=== PATIENT | male | born 1960 | race Caucasian/White ===

== ENCOUNTER 2017-04-06 21:00 | Inpatient (IN) | payer OTHER ==
[~2017-04-06] VITALS: Ht 185.4 cm; Wt 84.6 kg
[2017-04-06 21:30] VITALS: BP 129/84; RESP 18
[2017-04-06 22:30] VITALS: PULSE 99
[2017-04-06] MEDS ORDERED: ACETAMINOPHEN 325 MG TAB PO PRN (23:00)
[2017-04-06] MEDS ORDERED: hydrALAzine 20 MG INJ IV PRN (23:00)
[2017-04-06 23:33] VITALS: Ht 185.4 cm; Wt 84.6 kg
[2017-04-06 23:51] VITALS: BP 128/83; RESP 18
[2017-04-07] VITALS (12 sets, daily range): BP systolic 134–160; BP diastolic 86–99; PULSE 66–90; RESP 18
[2017-04-07] MEDS: DEXTROSE 5%-0.9% NACL 1,000 ML IV SCH ×2 (00:17→16:47)
[2017-04-07] MEDS: CEFTRIAXONE 1 GM/50 ML (PMX) 50 ML IVPB SCH ×2 (00:17→22:15)
[2017-04-07] MEDS: LORAZEPAM 2 MG INJ IV PRN ×3 (00:17→20:33)
[2017-04-07] MEDS ORDERED: PANTOPRAZOLE 40 MG INJ IV SCH (06:00)
[2017-04-07] MEDS ORDERED: LISI10TA2 PO (07:26)
[2017-04-07] MEDS ORDERED: AMLO-147 PO (07:26)
[2017-04-07] MEDS ORDERED: BUPR-75 PO (07:26)
[2017-04-07] MEDS: MULTIVITAMINS 10 ML, THIAMINE 100 MG in SOD CHLORIDE 0.9% 1,000 ML IVPB SCH (08:31)
[2017-04-07 08:49] LABS: ABNORMAL IP MESSAGE 1; BASOPHILS % 0.3 % (0.0-2.0); EOSINOPHILS # 0.1 10^3/ul (0.0-0.5); EOSINOPHILS % 1.4 % (0.0-7.0); HEMATOCRIT 39.9 % (42.0-52.0); HEMOGLOBIN 14.1 g/dl (14.0-18.0); LYMPHOCYTES # 1.7 10^3/ul (0.8-2.9); LYMPHOCYTES % 19.8 % (15.0-51.0); MEAN CORPUSCULAR HEMOGLOBIN 29.4 pg (29.0-33.0); MEAN CORPUSCULAR HGB CONC 35.3 g/dl (32.0-37.0); MEAN CORPUSCULAR VOLUME 83.1 fl (82.0-101.0); MEAN PLATELET VOLUME 10.4 fl (7.4-10.4); MONOCYTE # 0.4 10^3/ul (0.3-0.9); MONOCYTES % 5.1 % (0.0-11.0); NEUTROPHIL # 6.3 10^3/ul (1.6-7.5); NEUTROPHILS % 73.2 % (39.0-77.0); PLATELET COUNT 99 10^3/UL (140-415); POSITIVE DIFF @See below; RED CELL DISTRIBUTION WIDTH 12.5 % (11.5-14.5); WHITE BLOOD COUNT 8.6 10^3/ul (4.8-10.8)
[2017-04-07 09:23] LABS: ALBUMIN 3.8 g/dl (3.3-4.9); ALBUMIN/GLOBULIN RATIO 1.4; BILIRUBIN,INDIRECT 0.8 mg/dl (0-1.1); BILIRUBIN,TOTAL 0.8 mg/dl (0.2-1.3); CALCIUM 8.2 mg/dl (8.4-10.2); CREATININE 0.6 mg/dl (0.61-1.24); POTASSIUM 3.5 mmol/L (3.5-5.1); TOTAL PROTEIN 6.5 g/dl (6.1-8.1)
[2017-04-07] MEDS: CHLORDIAZEPOXIDE 25 MG CAP PO SCH ×2 (12:22→20:32)
--- NOTE | 2017-04-07 15:01 | PSY ---
Date/Time of Note Date/Time of Note DATE: 04/07/17 TIME: 14:57 Psychiatric Subjective Eval Consent Pt consented to telemedicine: Yes Subjective Evaluation Patient location: inpatient Chief Complaint: s/p OD History of present illness Pt is 56 yo male with hx alcohol use disorder admitted s/p OD on his antihypretensive meds while intoxicated on alcohol; pt says "he always does it" then he relapses on alcohol; he says he was depressed and called 911 after the OD himself. He still is deprssed but now denies SI. He says he is hoepless and helpless at times but he has a supportive . He denies AH or Vh. He is on Wellbutrin. Past psychiatric history last inpt was 08/15 due to SA by OD Hospitalization: yes Family History denies Medical history reviewed Allergies: Coded Allergies: grass pollen (Verified Allergy, Mild, 04/06/17) sneezing Substance Abuse Substance abuse history: Yes Prior substance abuse treatmen: Yes Social History Marital status: Level of education: some college DPA/Conservatorship: No Occupation/Long Term: unemployed Psychiatric Objective Eval Physical Examination: Sleep: Insomnia Appetite: Adequate Energy: Decreased Interest: Decreased Mental Status Examination: Appearance: Disheveled Eye Contact: Good Psychomotor Activity: Normal Behavior: Cooperative Speech: Clear AFFECT: Depressed Mood: Depressed Though Process: Linear Thought Content: Normal Suicidal: Yes Homicidal: No On 72 hour hold: No Orientation: x4 Cognition: Alert Insight: Impared Judgement: Impared Laboratory Results Laboratory Tests Test 04/07/17 08:24 White Blood Count 8.610^3/ul Red Blood Count 4.8010^6/ul Hemoglobin 14.1g/dl Hematocrit 39.9% Mean Corpuscular Volume 83.1fl Mean Corpuscular Hemoglobin 29.4pg Mean Corpuscular Hemoglobin Concent 35.3g/dl Red Cell Distribution Width 12.5% Platelet Count 9910^3/UL Mean Platelet Volume 10.4fl Neutrophils % 73.2% Lymphocytes % 19.8% Monocytes % 5.1% Eosinophils % 1.4% Basophils % 0.3% Nucleated Red Blood Cells % 0.0/100WBC Neutrophils # 6.310^3/ul Lymphocytes # 1.710^3/ul Monocytes # 0.410^3/ul Eosinophils # 0.110^3/ul Basophils # 0.010^3/ul Nucleated Red Blood Cells # 0.010^3/ul Sodium Level 143mmol/L Potassium Level 3.5mmol/L Chloride Level 106mmol/L Carbon Dioxide Level 26mmol/L Anion Gap 15 Blood Urea Nitrogen 11mg/dl Creatinine 0.60mg/dl Glucose Level 101mg/dl Calcium Level 8.2mg/dl Magnesium Level 1.3mg/dl Total Bilirubin 0.8mg/dl Direct Bilirubin 0.00mg/dl Indirect Bilirubin 0.8mg/dl Aspartate Amino Transf (AST/SGOT) 45IU/L Alanine Aminotransferase (ALT/SGPT) 45IU/L Alkaline Phosphatase 73IU/L Total Protein 6.5g/dl Albumin 3.8g/dl Globulin 2.70g/dl Albumin/Globulin Ratio 1.40 Amylase Level 176U/L Lipase 791U/L Assessment and Plan Assessment/Diagnosis [place] I: ALCOHOL USE DISORDER. MAJOR DEPRESSIVE DISORDER SEVERE RECURRENT WITH PSYCHOSIS [place] II: DEFERED [place] III: MS [place] IV: MODERATE [place] V: GAF 25 Recommendation/Plan Medication Management COSNDIER HOLDING WELLBUTRIN. CONSDIER STARTING ON REMERON 15 MG POQHS; MONITOR FOR OBJECTIVE SIGNS OF ALCOHOL WITHDRAWALS. CONSIDER CIWA PROTOCOL. Psychotherapy DEFER TO INPT Follow-up/Disposition 5150 FOR DTS; TRANSFER TO INPT PSYCH. 5150 Recommendation: ELIZABET Reyna MD Apr 07, 2017 15:01
--- NOTE | 2017-04-07 17:52 | QN ---
Documentation Comment [id number] ALEXYS BARBOSA MD Apr 07, 2017 17:52
[2017-04-07] MEDS ORDERED: MAGNESIUM SULFATE 2 GM/50 ML 50 ML IVPB ONE (18:00)
[2017-04-07] MEDS: FAMOTIDINE 20 MG INJ IV SCH (20:32)
--- NOTE | 2017-04-07 21:01 | HP ---
DATE OF ADMISSION: 04/06/2017 HISTORY OF PRESENT ILLNESS: The patient is a 56-year-old male with history of alcohol abuse, psychiatric disorder. Patient was seen at [facility] ER after he started to drink alcohol and he also took his Wellbutrin. Patient was seen by Dr. Martin and was transferred to [facility] for further management. The patient was stable and cleared. The patient is also being seen by tele psych. Patient's vital signs and laboratory data was stable at the time of discharge, transferred from [facility]. PAST MEDICAL HISTORY: Positive for hypertension, depression, psychiatric disorder. ALLERGY HISTORY: GRASS, POLLEN. SOCIAL HISTORY: Positive for drinking. Denies drugs. MEDICATION HISTORY: Listed at home as: 1. Amlodipine. 2. Bupropion. 3. Lisinopril. REVIEW OF SYSTEMS: HEENT: Unremarkable. RESPIRATORY: Unremarkable. CARDIOVASCULAR: No chest pain, palpitation. ABDOMEN: No nausea, vomiting, or dyspepsia. The patient is hungry. EXTREMITIES: Unremarkable. CENTRAL NERVOUS SYSTEM: Unremarkable except anxiety. PHYSICAL EXAMINATION: GENERAL: The patient is awake, alert. VITAL SIGNS: Pulse 70, blood pressure 140/98. HEAD: Atraumatic, normocephalic. Pupils equal, reactive to light. NECK: Supple. No JVD. LUNGS: Clear. CARDIOVASCULAR: S1, S2 are normal. ABDOMEN: Soft, nontender. Bowel sounds positive. No palpable mass or hepatosplenomegaly. No guarding, rebound tenderness. EXTREMITIES: No cyanosis, clubbing, or edema. CENTRAL NERVOUS SYSTEM: The patient is awake, alert. No focal deficit. LABORATORY DATA: Sodium 140, potassium 3.5, BUN 11, creatinine 1.60, magnesium 1.3, hematocrit 39.9, amylase 176. Lipase 791. IMPRESSION: 1. Acute pancreatitis. 2. Alcohol abuse. 3. Depression. 4. wellbutrin overdose. 5. Hypomagnesemia. PLAN: Give this patient clear liquid diet, IV fluids and antianxiety medication. Watch PPI and magnesium replacement. Orders were done. Dictated By: ALEXYS BARBOSA MD BS/NTS Conf#: [id number] DID#: [id number] MTDD
[2017-04-08] VITALS (14 sets, daily range): BP systolic 129–164; BP diastolic 75–104; PULSE 63–78; RESP 18–20
[2017-04-08] MEDS: DEXTROSE 5%-0.9% NACL 1,000 ML IV SCH ×2 (06:24→15:00)
[2017-04-08 08:12] LABS: MAGNESIUM 1.8 mg/dl (1.7-2.5)
[2017-04-08] MEDS: FAMOTIDINE 20 MG INJ IV SCH ×2 (08:13→21:00)
[2017-04-08] MEDS: CHLORDIAZEPOXIDE 25 MG CAP PO SCH ×3 (08:13→21:00)
[2017-04-08] MEDS: MULTIVITAMINS 10 ML, THIAMINE 100 MG in SOD CHLORIDE 0.9% 1,000 ML IVPB SCH (08:13)
[2017-04-08 08:21] LABS: ALBUMIN 4.1 g/dl (3.3-4.9); ALBUMIN/GLOBULIN RATIO 1.41; BILIRUBIN,INDIRECT 0.9 mg/dl (0-1.1); BILIRUBIN,TOTAL 0.9 mg/dl (0.2-1.3); CALCIUM 8.5 mg/dl (8.4-10.2); CREATININE 0.64 mg/dl (0.61-1.24); POTASSIUM 3.4 mmol/L (3.5-5.1)
[2017-04-08] MEDS ORDERED: POTASSIUM CHLORIDE (SR) 10 MEQ TAB PO ONE (19:00)
--- NOTE | 2017-04-08 19:02 | PN ---
Date/Time of Note Date/Time of Note DATE: 04/08/17 TIME: 19:01 Assessment/Plan VTE Prophylaxis VTE Prophylaxis Intervention: other Lines/Catheters IV Catheter Type (from Nrs): Peripheral IV Assessment/Plan Chief Complaint/Hosp Course IMPRESSION: 1. Acute pancreatitis.better 2. Alcohol abuse. 3. Depression. 4. wellbutrin overdose. 5. Hypomagnesemia. plan po diet kcl Problems: Subjective 24 Hr Interval Summary Respiratory: no complaints Cardiovascular: no complaints Gastrointestinal: no complaints Exam/Review of Systems Vital Signs Vitals Vital Signs Date Time Temp Pulse Resp B/P Pulse Ox O2 Delivery O2 Flow Rate FiO2 04/08/17 16:37 74 04/08/17 16:00 98.3 18 136/87 96 Intake and Output 04/07/17 04/07/17 04/08/17 15:00 23:00 07:00 Intake Total 2261 ml 750 ml Balance 2261 ml 750 ml Exam Respiratory: clear to auscultation Cardiovascular: regular rate and rhythm Gastrointestinal: soft Musculoskeletal: nl extremities to inspection Extremities: normal pulses Results Result Diagram: 04/07/17 0824 04/08/17 0719 Results 24 hrs Laboratory Tests Test 04/08/17 07:19 Sodium Level 139 Potassium Level 3.4 L Chloride Level 104 Carbon Dioxide Level 24 Anion Gap 14 Blood Urea Nitrogen 10 Creatinine 0.64 Glucose Level 115 Calcium Level 8.5 Magnesium Level 1.8 Total Bilirubin 0.9 Direct Bilirubin 0.00 Indirect Bilirubin 0.9 Aspartate Amino Transf (AST/SGOT) 43 Alanine Aminotransferase (ALT/SGPT) 47 Alkaline Phosphatase 89 Total Protein 7.0 Albumin 4.1 Globulin 2.90 Albumin/Globulin Ratio 1.41 Lipase 220 Medications Medications Current Medications Dextrose/Sodium Chloride 1,000 ml @ 50 mls/hr Q20H IV Last administered on 06:24; Admin Dose 50 MLS/HR; Start 04/06/17 at 23:00 Multivitamins/ Thiamine HCl/ Sodium Chloride (Mvi Adult/ Vitamin B1/NS) 1,011 ml @ 125 mls/hr DAILY@09 IVPB Last administered on 04/08/17 08:13; Admin Dose 125 MLS/HR; Start 04/07/17 at 09:00 Lorazepam (Ativan) 1 mg Q4 PRN IV AGITATION/ANXIETY Last administered on 20:33; Admin Dose 1 MG; Start 04/06/17 at 23:00 Morphine Sulfate 2 mg 2 mg Q4H PRN IV PAIN; Start 04/06/17 at 23:00 Ceftriaxone Sodium (Rocephin) 50 ml @ 100 mls/hr Q24H IVPB Last administered on 04/07/17 22:15; Admin Dose 100 MLS/HR; Start 04/06/17 at 23:00 Acetaminophen (Tylenol Tab) 650 mg Q4H PRN PO PAIN AND OR ELEVATED TEMP; Start 04/06/17 at 23:00 Hydralazine HCl (Apresoline) 10 mg Q6H PRN IV systolic BP >170; Start 04/06/17 at 23:00 Chlordiazepoxide (Librium) 25 mg TID PO Last administered on 04/08/17 12:29; Admin Dose 25 MG; Start 04/07/17 at 13:00 Famotidine (Pepcid Iv) 20 mg BID IV Last administered on 04/08/17 08:13; Admin Dose 20 MG; Start 04/07/17 at 21:00; Stop 04/08/17 at 23:59 Pantoprazole (Protonix Tab) 40 mg DAILY@06 PO ; Start 04/09/17 at 06:00 ALEXYS BARBOSA MD Apr 08, 2017 19:02
[2017-04-08] MEDS: LORAZEPAM 2 MG INJ IV PRN (22:44)
[2017-04-09] VITALS (10 sets, daily range): BP systolic 124–151; BP diastolic 79–104; PULSE 58–68; RESP 16–20
[2017-04-09] MEDS: PANTOPRAZOLE (EC) 40 MG TAB PO SCH (05:46)
[2017-04-09 08:38] LABS: ABNORMAL IP MESSAGE 1; BASOPHILS % 0.5 % (0.0-2.0); EOSINOPHILS # 0.2 10^3/ul (0.0-0.5); EOSINOPHILS % 2.2 % (0.0-7.0); HEMATOCRIT 40.8 % (42.0-52.0); HEMOGLOBIN 13.6 g/dl (14.0-18.0); LYMPHOCYTES # 1.5 10^3/ul (0.8-2.9); LYMPHOCYTES % 20.1 % (15.0-51.0); MEAN CORPUSCULAR HEMOGLOBIN 28.1 pg (29.0-33.0); MEAN CORPUSCULAR HGB CONC 33.3 g/dl (32.0-37.0); MEAN CORPUSCULAR VOLUME 84.3 fl (82.0-101.0); MEAN PLATELET VOLUME 11.4 fl (7.4-10.4); MONOCYTE # 0.5 10^3/ul (0.3-0.9); MONOCYTES % 6.3 % (0.0-11.0); NEUTROPHIL # 5.2 10^3/ul (1.6-7.5); NEUTROPHILS % 70.5 % (39.0-77.0); PLATELET COUNT 80 10^3/UL (140-415); POSITIVE DIFF @See below; RED BLOOD COUNT 4.84 10^6/ul (4.70-6.10); RED CELL DISTRIBUTION WIDTH 12.7 % (11.5-14.5); WHITE BLOOD COUNT 7.4 10^3/ul (4.8-10.8)
[2017-04-09 08:46] LABS: ALBUMIN 3.7 g/dl (3.3-4.9); ALBUMIN/GLOBULIN RATIO 1.37; BILIRUBIN,INDIRECT 0.5 mg/dl (0-1.1); BILIRUBIN,TOTAL 0.5 mg/dl (0.2-1.3); CALCIUM 8.5 mg/dl (8.4-10.2); CREATININE 0.75 mg/dl (0.61-1.24); POTASSIUM 3.4 mmol/L (3.5-5.1); TOTAL PROTEIN 6.4 g/dl (6.1-8.1)
[2017-04-09] MEDS: MULTIVITAMINS 10 ML, THIAMINE 100 MG in SOD CHLORIDE 0.9% 1,000 ML IVPB SCH (08:59)
[2017-04-09] MEDS: CHLORDIAZEPOXIDE 25 MG CAP PO SCH ×3 (08:59→21:14)
[2017-04-09] MEDS: DEXTROSE 5%-0.9% NACL 1,000 ML IV SCH ×2 (11:00→18:41)
--- NOTE | 2017-04-09 19:04 | PN ---
Date/Time of Note Date/Time of Note DATE: 04/09/17 TIME: 19:02 Assessment/Plan VTE Prophylaxis VTE Prophylaxis Intervention: other Lines/Catheters IV Catheter Type (from Nrs): Peripheral IV Assessment/Plan Chief Complaint/Hosp Course IMPRESSION: 1. Acute pancreatitis.better 2. Alcohol abuse. 3. Depression. 4. wellbutrin overdose. 5. Hypomagnesemia. plan po diet kcl PSYCHIC F/U Problems: Subjective 24 Hr Interval Summary Subjective hx not possible: other (NO DEPRESSION AND NO SUIDAL IDEATION) Exam/Review of Systems Vital Signs Vitals Vital Signs Date Time Temp Pulse Resp B/P Pulse Ox O2 Delivery O2 Flow Rate FiO2 04/09/17 16:05 61 04/09/17 15:39 98.3 16 141/93 97 Intake and Output 04/08/17 04/08/17 04/09/17 15:00 23:00 07:00 Intake Total 1311 ml 1000 ml Balance 1311 ml 1000 ml Exam Neck: supple Cardiovascular: regular rate and rhythm Gastrointestinal: bowel sounds Results Result Diagram: 04/09/17 0730 04/09/17 0730 Results 24 hrs Laboratory Tests Test 04/09/17 07:30 White Blood Count 7.4 Red Blood Count 4.84 Hemoglobin 13.6 L Hematocrit 40.8 L Mean Corpuscular Volume 84.3 Mean Corpuscular Hemoglobin 28.1 L Mean Corpuscular Hemoglobin Concent 33.3 Red Cell Distribution Width 12.7 Platelet Count 80 L Mean Platelet Volume 11.4 H Neutrophils % 70.5 Lymphocytes % 20.1 Monocytes % 6.3 Eosinophils % 2.2 Basophils % 0.5 Nucleated Red Blood Cells % 0.0 Neutrophils # 5.2 Lymphocytes # 1.5 Monocytes # 0.5 Eosinophils # 0.2 Basophils # 0.0 Nucleated Red Blood Cells # 0.0 Sodium Level 142 Potassium Level 3.4 L Chloride Level 106 Carbon Dioxide Level 25 Anion Gap 14 Blood Urea Nitrogen 16 Creatinine 0.75 Glucose Level 113 Calcium Level 8.5 Total Bilirubin 0.5 Direct Bilirubin 0.00 Indirect Bilirubin 0.5 Aspartate Amino Transf (AST/SGOT) 25 Alanine Aminotransferase (ALT/SGPT) 44 Alkaline Phosphatase 76 Total Protein 6.4 Albumin 3.7 Globulin 2.70 Albumin/Globulin Ratio 1.37 Medications Medications Current Medications Dextrose/Sodium Chloride 1,000 ml @ 50 mls/hr Q20H IV Last administered on 18:41; Admin Dose 50 MLS/HR; Start 04/06/17 at 23:00 Multivitamins/ Thiamine HCl/ Sodium Chloride (Mvi Adult/ Vitamin B1/NS) 1,011 ml @ 125 mls/hr DAILY@09 IVPB Last administered on 04/09/17 08:59; Admin Dose 125 MLS/HR; Start 04/07/17 at 09:00 Lorazepam (Ativan) 1 mg Q4 PRN IV AGITATION/ANXIETY Last administered on 22:44; Admin Dose 1 MG; Start 04/06/17 at 23:00 Morphine Sulfate (morphine) 2 mg Q4H PRN IV PAIN; Start 04/06/17 at 23:00 Acetaminophen (Tylenol Tab) 650 mg Q4H PRN PO PAIN AND OR ELEVATED TEMP; Start 04/06/17 at 23:00 Hydralazine HCl (Apresoline) 10 mg Q6H PRN IV systolic BP >170; Start 04/06/17 at 23:00 Chlordiazepoxide (Librium) 25 mg TID PO Last administered on 04/09/17 12:36; Admin Dose 25 MG; Start 04/07/17 at 13:00 Pantoprazole (Protonix Tab) 40 mg DAILY@06 PO Last administered on 04/09/17 05 :46; Admin Dose 40 MG; Start 04/09/17 at 06:00 ALEXYS BARBOSA MD Apr 09, 2017 19:04
[2017-04-09] MEDS ORDERED: POTASSIUM CHLORIDE 250 ML IVPB ONE (19:30)
[2017-04-09] MEDS: LORAZEPAM 2 MG INJ IV PRN (22:02)
[2017-04-10] VITALS (7 sets, daily range): BP systolic 125–149; BP diastolic 75–98; RESP 16–20
[2017-04-10] MEDS: PANTOPRAZOLE (EC) 40 MG TAB PO SCH (06:37)
[2017-04-10 07:50] LABS: ALBUMIN 3.6 g/dl (3.3-4.9); ALBUMIN/GLOBULIN RATIO 1.33; BILIRUBIN,INDIRECT 0.3 mg/dl (0-1.1); BILIRUBIN,TOTAL 0.3 mg/dl (0.2-1.3); CALCIUM 8.7 mg/dl (8.4-10.2); CREATININE 0.79 mg/dl (0.61-1.24); POTASSIUM 3.9 mmol/L (3.5-5.1); TOTAL PROTEIN 6.3 g/dl (6.1-8.1)
[2017-04-10] MEDS: CHLORDIAZEPOXIDE 25 MG CAP PO SCH ×3 (09:20→20:36)
[2017-04-10] MEDS: MULTIVITAMINS 10 ML, THIAMINE 100 MG in SOD CHLORIDE 0.9% 1,000 ML IVPB SCH (09:20)
--- NOTE | 2017-04-10 11:26 | PN ---
Date/Time of Note Date/Time of Note DATE: 04/10/17 TIME: 11:25 Assessment/Plan VTE Prophylaxis VTE Prophylaxis Intervention: ambulation Lines/Catheters IV Catheter Type (from Nrs): Peripheral IV Assessment/Plan Chief Complaint/Hosp Course 1. Acute pancreatitis, better 2. Alcohol abuse. 3. Depression. 4. Wellbutrin overdose. 5. Hypomagnesemia. Problems: Assessment/Plan 1. pt is clear medically 2. transfer to psychiatric facility Subjective 24 Hr Interval Summary Constitutional: improved, no complaints Exam/Review of Systems Vital Signs Vitals Vital Signs Date Time Temp Pulse Resp B/P Pulse Ox O2 Delivery O2 Flow Rate FiO2 04/10/17 07:19 98.0 58 20 141/98 98 Intake and Output 04/09/17 04/09/17 04/10/17 15:00 23:00 07:00 Intake Total 2000 ml Balance 2000 ml Exam Constitutional: alert, oriented Respiratory: clear to auscultation Cardiovascular: regular rate and rhythm Gastrointestinal: soft Results Result Diagram: 04/09/17 0730 04/10/17 0700 Results 24 hrs Laboratory Tests Test 04/10/17 07:00 Sodium Level 141 Potassium Level 3.9 Chloride Level 106 Carbon Dioxide Level 25 Anion Gap 14 Blood Urea Nitrogen 17 Creatinine 0.79 Glucose Level 107 Calcium Level 8.7 Total Bilirubin 0.3 Direct Bilirubin 0.00 Indirect Bilirubin 0.3 Aspartate Amino Transf (AST/SGOT) 21 Alanine Aminotransferase (ALT/SGPT) 38 Alkaline Phosphatase 74 Total Protein 6.3 Albumin 3.6 Globulin 2.70 Albumin/Globulin Ratio 1.33 Medications Medications Current Medications Dextrose/Sodium Chloride 1,000 ml @ 50 mls/hr Q20H IV Last administered on 18:41; Admin Dose 50 MLS/HR; Start 04/06/17 at 23:00 Multivitamins/ Thiamine HCl/ Sodium Chloride (Mvi Adult/ Vitamin B1/NS) 1,011 ml @ 125 mls/hr DAILY@09 IVPB Last administered on 04/10/17 09:20; Admin Dose 125 MLS/HR; Start 04/07/17 at 09:00 Lorazepam (Ativan) 1 mg Q4 PRN IV AGITATION/ANXIETY Last administered on 22:02; Admin Dose 1 MG; Start 04/06/17 at 23:00 Morphine Sulfate (morphine) 2 mg Q4H PRN IV PAIN; Start 04/06/17 at 23:00 Acetaminophen (Tylenol Tab) 650 mg Q4H PRN PO PAIN AND OR ELEVATED TEMP; Start 04/06/17 at 23:00 Hydralazine HCl (Apresoline) 10 mg Q6H PRN IV systolic BP >170; Start 04/06/17 at 23:00 Chlordiazepoxide (Librium) 25 mg TID PO Last administered on 04/10/17 09:20; Admin Dose 25 MG; Start 04/07/17 at 13:00 Pantoprazole (Protonix Tab) 40 mg DAILY@06 PO Last administered on 04/10/17 06:37; Admin Dose 40 MG; Start 04/09/17 at 06:00 LYNDSEY MATTA Apr 10, 2017 11:26
[2017-04-10 12:48] LABS: AMYLASE 102 U/L (11-123)
[2017-04-10] MEDS: DEXTROSE 5%-0.9% NACL 1,000 ML IV SCH (22:50)
[2017-04-10] MEDS: LORAZEPAM 2 MG INJ IV PRN (22:50)
[2017-04-11 02:40] VITALS: BP 140/94; RESP 20
[2017-04-11 06:12] LABS: CHOL/HDL RATIO 2.4 RATIO
[2017-04-11] MEDS: PANTOPRAZOLE (EC) 40 MG TAB PO SCH (06:15)
[2017-04-11 08:00] VITALS: BP 138/93; RESP 16
[2017-04-11] MEDS: MULTIVITAMINS 10 ML, THIAMINE 100 MG in SOD CHLORIDE 0.9% 1,000 ML IVPB SCH (09:24)
[2017-04-11] MEDS: CHLORDIAZEPOXIDE 25 MG CAP PO SCH ×3 (09:24→20:05)
--- NOTE | 2017-04-11 11:10 | PN ---
Date/Time of Note Date/Time of Note DATE: 04/11/17 TIME: 11:09 Assessment/Plan VTE Prophylaxis VTE Prophylaxis Intervention: ambulation Lines/Catheters IV Catheter Type (from Nrsg): Peripheral IV Assessment/Plan Chief Complaint/Hosp Course 1. Acute pancreatitis, better 2. Alcohol abuse. 3. Depression. 4. Wellbutrin overdose. 5. Hypomagnesemia, resolved. Problems: Assessment/Plan 1. pending transfer to psych facility 2. Medically clear Subjective 24 Hr Interval Summary Constitutional: improved, no complaints Exam/Review of Systems Vital Signs Vitals Vital Signs Date Time Temp Pulse Resp B/P Pulse Ox O2 Delivery O2 Flow Rate FiO2 04/11/17 08:00 98.3 66 16 138/93 98 Intake and Output 04/10/17 04/10/17 04/11/17 15:00 23:00 07:00 Intake Total 1140 ml 2651 ml 540 ml Output Total 900 ml 300 ml Balance 240 ml 2351 ml 540 ml Exam Constitutional: alert, oriented Respiratory: clear to auscultation Cardiovascular: regular rate and rhythm Results Result Diagram: 04/09/17 0730 04/10/17 0700 Results 24 hrs Laboratory Tests Test 04/11/17 04:54 Triglycerides Level 79 Cholesterol Level 132 LDL Cholesterol, Calculated 61 HDL Cholesterol 55 Cholesterol/HDL Ratio 2.4 Amylase Level 131 H Medications Medications Current Medications Dextrose/Sodium Chloride 1,000 ml @ 50 mls/hr Q20H IV Last administered on 22:50; Admin Dose 50 MLS/HR; Start 04/06/17 at 23:00 Multivitamins/ Thiamine HCl/ Sodium Chloride (Mvi Adult/ Vitamin B1/NS) 1,011 ml @ 125 mls/hr DAILY@09 IVPB Last administered on 04/11/17 09:24; Admin Dose 125 MLS/HR; Start 04/07/17 at 09:00 Lorazepam (Ativan) 1 mg Q4 PRN IV AGITATION/ANXIETY Last administered on 22:50; Admin Dose 1 MG; Start 04/06/17 at 23:00 Morphine Sulfate (morphine) 2 mg Q4H PRN IV PAIN; Start 04/06/17 at 23:00 Acetaminophen (Tylenol Tab) 650 mg Q4H PRN PO PAIN AND OR ELEVATED TEMP; Start 04/06/17 at 23:00 Hydralazine HCl (Apresoline) 10 mg Q6H PRN IV systolic BP >170; Start 04/06/17 at 23:00 Chlordiazepoxide (Librium) 25 mg TID PO Last administered on 04/11/17 09:24; Admin Dose 25 MG; Start 04/07/17 at 13:00 Pantoprazole (Protonix Tab) 40 mg DAILY@06 PO Last administered on 04/11/17 06:15; Admin Dose 40 MG; Start 04/09/17 at 06:00 LYNDSEY MATTA Apr 11, 2017 11:10
[2017-04-11 14:00] VITALS: BP 134/91; RESP 17
[2017-04-11] MEDS: morphine 2 MG INJ IV PRN (17:39)
[2017-04-11 19:16] VITALS: BP 130/86; RESP 19
[2017-04-11] MEDS: DEXTROSE 5%-0.9% NACL 1,000 ML IV SCH (19:40)
[2017-04-11] MEDS: LORAZEPAM 2 MG INJ IV PRN (22:09)
[2017-04-12 02:22] VITALS: BP 139/86; RESP 18
[2017-04-12] MEDS: PANTOPRAZOLE (EC) 40 MG TAB PO SCH (05:22)
[2017-04-12 07:13] VITALS: BP 151/95; RESP 18
[2017-04-12 07:33] LABS: CHOL/HDL RATIO 2.4 RATIO
--- NOTE | 2017-04-12 07:57 | PN ---
Date/Time of Note Date/Time of Note DATE: 04/12/17 TIME: 07:56 Assessment/Plan VTE Prophylaxis VTE Prophylaxis Intervention: ambulation Lines/Catheters IV Catheter Type (from Nrs): Peripheral IV Assessment/Plan Chief Complaint/Hosp Course 1. Acute pancreatitis, better. Lipase 700 2. Alcohol abuse. 3. Depression. 4. Wellbutrin overdose. 5. Hypomagnesemia, resolved. Problems: Assessment/Plan 1. Placement issue. Pt can be transferred to [facility] hospital when lipase will be decreased to 200 2. amylase and lipase level tomorrow Subjective 24 Hr Interval Summary Constitutional: improved, no complaints Exam/Review of Systems Vital Signs Vitals Vital Signs Date Time Temp Pulse Resp B/P Pulse Ox O2 Delivery O2 Flow Rate FiO2 04/12/17 07:13 97.7 58 18 151/95 99 Intake and Output 04/11/17 04/11/17 04/12/17 15:00 23:00 07:00 Intake Total 150 ml 2511 ml 1130 ml Balance 150 ml 2511 ml 1130 ml Exam Constitutional: alert, oriented ENMT: nl external ears & nose Respiratory: clear to auscultation Cardiovascular: regular rate and rhythm Gastrointestinal: soft Results Result Diagram: 04/09/17 0730 04/10/17 0700 Results 24 hrs Laboratory Tests Test 04/12/17 05:10 Triglycerides Level 87 Cholesterol Level 108 LDL Cholesterol, Calculated 47 HDL Cholesterol 44 # Cholesterol/HDL Ratio 2.4 Amylase Level 135 H Medications Medications Current Medications Dextrose/Sodium Chloride 1,000 ml @ 50 mls/hr Q20H IV Last administered on 19:40; Admin Dose 50 MLS/HR; Start 04/06/17 at 23:00 Multivitamins/ Thiamine HCl/ Sodium Chloride (Mvi Adult/ Vitamin B1/NS) 1,011 ml @ 125 mls/hr DAILY@09 IVPB Last administered on 04/11/17 09:24; Admin Dose 125 MLS/HR; Start 04/07/17 at 09:00 Lorazepam (Ativan) 1 mg Q4 PRN IV AGITATION/ANXIETY Last administered on 22:09; Admin Dose 1 MG; Start 04/06/17 at 23:00 Morphine Sulfate (morphine) 2 mg Q4H PRN IV PAIN Last administered on 17:39; Admin Dose 2 MG; Start 04/06/17 at 23:00 Acetaminophen (Tylenol Tab) 650 mg Q4H PRN PO PAIN AND OR ELEVATED TEMP; Start 04/06/17 at 23:00 Hydralazine HCl (Apresoline) 10 mg Q6H PRN IV systolic BP >170; Start 04/06/17 at 23:00 Chlordiazepoxide (Librium) 25 mg TID PO Last administered on 04/11/17 20:05; Admin Dose 25 MG; Start 04/07/17 at 13:00 Pantoprazole (Protonix Tab) 40 mg DAILY@06 PO Last administered on 04/12/17 05:22; Admin Dose 40 MG; Start 04/09/17 at 06:00 LYNDSEY MATTA Apr 12, 2017 07:57
[2017-04-12] MEDS: MULTIVITAMINS 10 ML, THIAMINE 100 MG in SOD CHLORIDE 0.9% 1,000 ML IVPB SCH (08:57)
[2017-04-12] MEDS: CHLORDIAZEPOXIDE 25 MG CAP PO SCH ×3 (08:57→20:09)
[2017-04-12 14:12] VITALS: BP 129/7; RESP 18
[2017-04-12] MEDS: morphine 2 MG INJ IV PRN (15:54)
[2017-04-12 19:49] VITALS: BP 134/94; RESP 19
[2017-04-12] MEDS: DEXTROSE 5%-0.9% NACL 1,000 ML IV SCH (20:09)
[2017-04-12] MEDS: LORAZEPAM 2 MG INJ IV PRN (21:42)
[2017-04-13 02:15] VITALS: BP 140/84; RESP 19
[2017-04-13] MEDS: PANTOPRAZOLE (EC) 40 MG TAB PO SCH (05:28)
[2017-04-13 06:30] LABS: AMYLASE 139 U/L (11-123)
[2017-04-13 07:22] VITALS: BP 138/91; RESP 18
[2017-04-13] MEDS: MULTIVITAMINS 10 ML, THIAMINE 100 MG in SOD CHLORIDE 0.9% 1,000 ML IVPB SCH (09:21)
[2017-04-13] MEDS: CHLORDIAZEPOXIDE 25 MG CAP PO SCH ×3 (09:21→20:35)
--- NOTE | 2017-04-13 15:45 | PN ---
Date/Time of Note Date/Time of Note DATE: 04/13/17 TIME: 15:42 Assessment/Plan VTE Prophylaxis VTE Prophylaxis Intervention: other Lines/Catheters IV [facility]): Peripheral IV Assessment/Plan Chief Complaint/Hosp Course 1. Acute pancreatitis, better. Lipase 700> 575, pt denies any abdominal pain/ nausea/vomting 2. Alcohol abuse. 3. Depression. 4. Wellbutrin overdose. 5. Hypomagnesemia, resolved. Problems: Assessment/Plan 1. Placement issue. Pt can be transferred to [facility] when lipase will be decreased to 200 2. amylase and lipase level tomorrow 3 Restart iv fluids 4 spoke to and spoke to [facility] [place] they said that they have strict criteria and would not accept pt untlil lipase down to 200 Problems: Subjective 24 Hr Interval Summary Free Text/Dictation Pt denies any abdominal pain, toleratijng diet well, no nausea/vomiting Lipase was 575 today Exam/Review of Systems Vital Signs Vitals Vital Signs Date Time Temp Pulse Resp B/P Pulse Ox O2 Delivery O2 Flow Rate FiO2 04/13/17 07:22 98.0 52 18 138/91 98 Intake and Output 04/12/17 04/12/17 04/13/17 14:59 22:59 06:59 Intake Total 200 ml 2181 ml 930 ml Balance 200 ml 2181 ml 930 ml Exam Constitutional: alert, oriented ENMT: nl external ears & nose Respiratory: clear to auscultation Cardiovascular: regular rate and rhythm Gastrointestinal: soft Results Result Diagram: 04/09/17 0730 04/10/17 0700 Results 24 hrs Laboratory Tests Test 04/13/17 05:08 Amylase Level 139 H Lipase 575 H Medications Medications Current Medications Dextrose/Sodium Chloride 1,000 ml @ 50 mls/hr Q20H IV Last administered on 20:09; Admin Dose 50 MLS/HR; Start 04/06/17 at 23:00 Multivitamins/ Thiamine HCl/ Sodium Chloride (Mvi Adult/ Vitamin B1/NS) 1,011 ml @ 125 mls/hr DAILY@09 IVPB Last administered on 04/13/17 09:21; Admin Dose 125 MLS/HR; Start 04/07/17 at 09:00 Lorazepam (Ativan) 1 mg Q4 PRN IV AGITATION/ANXIETY Last administered on 21:42; Admin Dose 1 MG; Start 04/06/17 at 23:00 Morphine Sulfate (morphine) 2 mg Q4H PRN IV PAIN Last administered on 15:54; Admin Dose 2 MG; Start 04/06/17 at 23:00 Acetaminophen (Tylenol Tab) 650 mg Q4H PRN PO PAIN AND OR ELEVATED TEMP; Start 04/06/17 at 23:00 Hydralazine HCl (Apresoline) 10 mg Q6H PRN IV systolic BP >170; Start 04/06/17 at 23:00 Chlordiazepoxide (Librium) 25 mg TID PO Last administered on 04/13/17 13:43; Admin Dose 25 MG; Start 04/07/17 at 13:00 Pantoprazole (Protonix Tab) 40 mg DAILY@06 PO Last administered on 04/13/17 05:28; Admin Dose 40 MG; Start 04/09/17 at 06:00 LYNDSEY NASSAR MD Apr 13, 2017 15:45
[2017-04-13] MEDS: DEXTROSE 5%-0.9% NACL 1,000 ML IV SCH ×2 (17:08→20:36)
--- NOTE | 2017-04-13 17:37 | PSY ---
Date/Time of Note Date/Time of Note DATE: 04/13/17 TIME: 17:29 Psychiatric Subjective Eval Consent Pt consented to telemedicine: Yes Subjective Evaluation Patient location: inpatient Chief Complaint: s/p OD Reason for consult: Evaluation History of present illness Pt is a 56 year old male with a long history of alcohol abuse and depression. He reports that he had been feeling well from a mental health standpoint but then "slipped" on the drinking. After he started drinking, he felt depressed and overdosed on his wellbutrin. This lead to liver failure and an inpatient admission. Patient called 911 himself because he reports "I did not want to ." He also reports that he had attempted to contact his outpatient team. Currently, patient is very anxious. He has been to inpatient psychiatry units before (he has a history of overdosing) and he does not like them. He states they are scary places. He likes his outpatient treatment team and would prefer to be discharged to their care rather than inpatient. He is also worried about losing his job and if he does not have work to go to, he is afraid he will decompensate. Pt continues to deny suicidal ideation. He denies homicidal ideation. He denies hallucinations and delusions. He denies s/s of hypomania and alicja. Past psychiatric history Multiple overdose attempts and inpatient admissions. Last one in July of 2016. 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 Psychiatric Objective Eval Mental Status Examination: Appearance: Groomed Eye Contact: Good Psychomotor Activity: Normal Behavior: Friendly, Cooperative Speech: Clear AFFECT: Anxious Mood: Anxious Though Process: Linear Thought Content: Normal Suicidal: No Homicidal: No On 72 hour hold: No Orientation: x4 Cognition: Alert Insight: Intact Judgement: Intact Attention Span: Intact Laboratory Results Laboratory Tests Test 04/12/17 05:10 04/13/17 05:08 Triglycerides Level 87mg/dl Cholesterol Level 108mg/dl LDL Cholesterol, Calculated 47mg/dl HDL Cholesterol 44mg/dl Cholesterol/HDL Ratio 2.4RATIO Amylase Level 135U/L 139U/L Lipase 575U/L Assessment and Plan Assessment/Diagnosis Hustle I: Alcohol Use Disorder, Major Depressive Disorder, Recurrent, Unspecified Recommendation/Plan Medication Management Continue current psychiatric treatment. Psychotherapy Brief supportive work. Pt. Caregiver/Family Education NA Follow-up/Disposition Pt has treatment team in place. It appears that he made an attempt while intoxicated. He remains a high risk for self harm. However, at current time, he does not appear to be an acute danger to self or others. He was offered inpatient psychiatry. He declines. He prefers to follow up with the treatment team he has in place. Given the above, recommend discharge to home when medicall stable. Would recommend having follow up appointments set for him for his outpatient providers prior to discharge. 5150 Recommendation: No hold. No longer appears to meet criteria. HAFSA DECKER Apr 13, 2017 17:37
[2017-04-13 20:24] VITALS: BP 149/87; RESP 17
[2017-04-13] MEDS: LORAZEPAM 2 MG INJ IV PRN (23:29)
[2017-04-14 02:19] VITALS: BP 160/92; RESP 18
[2017-04-14] MEDS: PANTOPRAZOLE (EC) 40 MG TAB PO SCH (05:33)
[2017-04-14 05:41] LABS: BASOPHILS % 0.8 % (0.0-2.0); EOSINOPHILS # 0.1 10^3/ul (0.0-0.5); EOSINOPHILS % 2.2 % (0.0-7.0); HEMATOCRIT 36.2 % (42.0-52.0); HEMOGLOBIN 12.5 g/dl (14.0-18.0); LYMPHOCYTES # 1.9 10^3/ul (0.8-2.9); MEAN CORPUSCULAR HEMOGLOBIN 29.5 pg (29.0-33.0); MEAN CORPUSCULAR HGB CONC 34.5 g/dl (32.0-37.0); MEAN CORPUSCULAR VOLUME 85.4 fl (82.0-101.0); MEAN PLATELET VOLUME 10.4 fl (7.4-10.4); MONOCYTE # 0.6 10^3/ul (0.3-0.9); MONOCYTES % 12.7 % (0.0-11.0); NEUTROPHIL # 2.2 10^3/ul (1.6-7.5); NEUTROPHILS % 44.9 % (39.0-77.0); PLATELET COUNT 117 10^3/UL (140-415); RED BLOOD COUNT 4.24 10^6/ul (4.70-6.10); RED CELL DISTRIBUTION WIDTH 13.2 % (11.5-14.5)
[2017-04-14 06:21] LABS: ALBUMIN 3.4 g/dl (3.3-4.9); ALBUMIN/GLOBULIN RATIO 1.36; BILIRUBIN,INDIRECT 0.1 mg/dl (0-1.1); BILIRUBIN,TOTAL 0.1 mg/dl (0.2-1.3); CALCIUM 8.5 mg/dl (8.4-10.2); CREATININE 0.84 mg/dl (0.61-1.24); POTASSIUM 3.9 mmol/L (3.5-5.1); TOTAL PROTEIN 5.9 g/dl (6.1-8.1)
[2017-04-14] MEDS: DEXTROSE 5%-0.9% NACL 1,000 ML IV SCH ×2 (06:49→20:14)
[2017-04-14 07:47] VITALS: BP 135/92
[2017-04-14] MEDS: CHLORDIAZEPOXIDE 25 MG CAP PO SCH ×3 (08:20→20:14)
[2017-04-14 14:28] VITALS: BP 131/76; RESP 18
--- NOTE | 2017-04-14 16:57 | PN ---
Date/Time of Note Date/Time of Note DATE: 04/14/17 TIME: 16:54 Assessment/Plan VTE Prophylaxis VTE Prophylaxis Intervention: other Lines/Catheters IV [facility] Type (from [facility]): Peripheral IV Assessment/Plan Chief Complaint/Hosp Course 1. Acute pancreatitis, better. Lipase 700> 575>631, +abdominal pain , nausea 2. Alcohol abuse. 3. Depression. 4. Wellbutrin overdose. 5. Hypomagnesemia, resolved. Problems: Assessment/Plan - IV fluids - Full liquid - Repeat amylase/lipase tmw - Abdominal U/S - 5150 dced Problems: Subjective 24 Hr Interval Summary Free Text/Dictation Pt says that he is feeling nausea today On and off abdominal pain Exam/Review of Systems Vital Signs Vitals Vital Signs Date Time Temp Pulse Resp B/P Pulse Ox O2 Delivery O2 Flow Rate FiO2 04/14/17 14:28 98.0 63 18 131/76 97 Intake and Output 04/13/17 04/13/17 04/14/17 14:59 22:59 06:59 Intake Total 200 ml 3930 ml 1720 ml Balance 200 ml 3930 ml 1720 ml Exam Constitutional: alert, oriented ENMT: nl external ears & nose Respiratory: clear to auscultation Cardiovascular: regular rate and rhythm Gastrointestinal: soft Results Result Diagram: 04/14/17 0503 04/14/17 0503 Results 24 hrs Laboratory Tests Test 04/14/17 05:03 White Blood Count 5.0 # Red Blood Count 4.24 L Hemoglobin 12.5 L Hematocrit 36.2 L Mean Corpuscular Volume 85.4 Mean Corpuscular Hemoglobin 29.5 Mean Corpuscular Hemoglobin Concent 34.5 Red Cell Distribution Width 13.2 Platelet Count 117 #L Mean Platelet Volume 10.4 Neutrophils % 44.9 Lymphocytes % 38.0 Monocytes % 12.7 H Eosinophils % 2.2 Basophils % 0.8 Nucleated Red Blood Cells % 0.0 Neutrophils # 2.2 Lymphocytes # 1.9 Monocytes # 0.6 Eosinophils # 0.1 Basophils # 0.0 Nucleated Red Blood Cells # 0.0 Sodium Level 146 H Potassium Level 3.9 Chloride Level 109 Carbon Dioxide Level 30 Anion Gap 11 Blood Urea Nitrogen 14 Creatinine 0.84 Glucose Level 95 Calcium Level 8.5 Magnesium Level 1.9 Total Bilirubin 0.1 L Direct Bilirubin 0.00 Indirect Bilirubin 0.1 Aspartate Amino Transf (AST/SGOT) 19 Alanine Aminotransferase (ALT/SGPT) 33 Alkaline Phosphatase 65 Total Protein 5.9 L Albumin 3.4 Globulin 2.50 Albumin/Globulin Ratio 1.36 Amylase Level 143 H Lipase 631 H Medications Medications Current Medications Dextrose/Sodium Chloride (D5-NS) 1,000 ml @ 100 mls/hr Q10H IV Last administered on 04/14/17 06:49; Admin Dose 100 MLS/HR; Start 04/06/17 at 23:00 Lorazepam (Ativan) 1 mg Q4 PRN IV AGITATION/ANXIETY Last administered on 23:29; Admin Dose 1 MG; Start 04/06/17 at 23:00 Morphine Sulfate (morphine) 2 mg Q4H PRN IV PAIN Last administered on 15:54; Admin Dose 2 MG; Start 04/06/17 at 23:00 Acetaminophen (Tylenol Tab) 650 mg Q4H PRN PO PAIN AND OR ELEVATED TEMP; Start 04/06/17 at 23:00 Hydralazine HCl (Apresoline) 10 mg Q6H PRN IV systolic BP >170; Start 04/06/17 at 23:00 Chlordiazepoxide (Librium) 25 mg TID PO Last administered on 04/14/17 12:50; Admin Dose 25 MG; Start 04/07/17 at 13:00 Pantoprazole (Protonix Tab) 40 mg DAILY@06 PO Last administered on 04/14/17 05:33; Admin Dose 40 MG; Start 04/09/17 at 06:00 LYNDSEY NASSAR MD Apr 14, 2017 16:57
--- NOTE | 2017-04-14 17:52 | RADRPT ---
PROCEDURE: US Abdomen (right upper quadrant). CLINICAL INDICATION: Right upper quadrant abdomen pain. TECHNIQUE: Multiple real-time longitudinal and transverse images of the right upper quadrant of th e abdomen were acquired utilizing a curved array transducer. Images were reviewed on a high-resoluti on PACS workstation. COMPARISON: None FINDINGS: The liver is normal in size and diffusely increased in echogenicity. There is no focal hepatic lesion. Color Doppler and pulsed Doppler sonography demonstrate normal a ntegrade flow in the portal vein. The gallbladder is normal with no stones or wall thickening. There is no pericholecystic fluid suad ection. The bile ducts are normal with the common bile duct measuring 2.9 mm in diameter. The visualized portions of the pancreas are unremarkable with obscuration of the tail of the pancrea s. No free fluid is present. The right kidney measures 10.7 cm. There is normal echogenicity of the right kidney. There is no perinephric fluid collection. No hydronephrosis, mass, or calculus is seen. IMPRESSION: 1. Fatty metamorphosis of the liver. 2. Otherwise unremarkable right upper quadrant abdomen ultrasound. RPTAT: QQ .Brandon Guthrie MD, Date Time Electronically viewed and signed by .Brandon Guthrie MD, on 04/14/2017 17:52 .R/
[2017-04-14 20:06] VITALS: BP 157/96; RESP 18
[2017-04-14] MEDS: morphine 2 MG INJ IV PRN (20:15)
[2017-04-14] MEDS: LORAZEPAM 2 MG INJ IV PRN (23:35)
[2017-04-15] MEDS: morphine 2 MG INJ IV PRN (00:55)
[2017-04-15 02:08] VITALS: BP 127/83; RESP 18
[2017-04-15] MEDS: DEXTROSE 5%-0.9% NACL 1,000 ML IV SCH (05:11)
[2017-04-15] MEDS: PANTOPRAZOLE (EC) 40 MG TAB PO SCH (05:11)
[2017-04-15 06:50] LABS: CALCIUM 8.6 mg/dl (8.4-10.2); CREATININE 0.89 mg/dl (0.61-1.24); POTASSIUM 3.9 mmol/L (3.5-5.1)
[2017-04-15 07:56] VITALS: BP 133/86; RESP 20
[2017-04-15] MEDS: CHLORDIAZEPOXIDE 25 MG CAP PO SCH ×2 (08:14→13:30)
--- NOTE | 2017-04-15 09:17 | PDOCDIS ---
Discharge Instructions DIAGNOSIS Discharge Diagnosis Acute pancreatitis secondary to alcholol use Depression CONDITION Patient Condition: Fair HOME CARE INSTRUCTIONS: Special Diet: Low chol low fat ACTIVITY: Activity Restrictions: Slowly Increase Activity FOLLOW UP/APPOINTMENTS Follow-up Plan f/u PCP in 1 - 2weeks f/u Pscychiatry in 1-2 weeks Avoid alcholol LYNDSEY NASSAR MD Apr 15, 2017 09:17
[2017-04-15] MEDS ORDERED: CHLO25CA9 PO (09:19)
--- NOTE | 2017-04-16 05:52 | DS ---
DATE OF ADMISSION: 04/06/2017 DATE OF DISCHARGE: 04/15/2017 HISTORY OF PRESENT ILLNESS AND HOSPITAL COURSE: This is a 56-year-old male with a past medical hist ory of alcoholic abuse, depression, was seen in [facility] ER after he started to drink alc ohol and also took his Wellbutrin. The patient was seen by Dr. Grossman and was transferred to [facility] for further management. The patient was stable and cleared. On admission, the patient was seen by psychiatry, [facility], admitted status post OD on hypertensive medication or intoxicated on alcohol. The patient was put on hold. By tele psych and Wellbutrin was held. Th e patient was transferred to 5150, put on hold. The patient was also found to have had labs drawn t hat showed lipase was 575, was also having abdominal pain, was being kept n.p.o., started on IV flui ds. The patient was also getting banana bag every day, given Ativan for alcoholic withdrawal. The patient was also found to have anemia. The patient was clinically feeling better every day. Lipase came down to 373. The patient was able to tolerate regular diet; also had an abdominal ultrasound that was negative for any gallstones. The patient was reassessed. Initially, plans were made to di scharge the patient to a tele psych bed; however, the patient was being evaluated by tele psych mirna chen. He was very anxious. The patient denied any suicidal ideation, denied any homicidal ideation. Denies any hypomania, alicja. According to psych, he does not appear to be in acute danger to self o r others. He is offered inpatient psychiatry. He declines. Would like to follow up with the treat ment team he has in place. Per psych, the patient is stable to be discharged home. No longer appear s to meet the hold criteria. The patient is feeling much better and currently stable to be discharg ed home. DISCHARGE MEDICATIONS: Chlordiazepoxide 25 mg p.o. b.i.d. for 3 days and p.o. daily for 2 days and then discontinue, Norvasc 10, buspirone 150, lisinopril 10. DISCHARGE DIAGNOSES: 1. Acute pancreatitis, improved. 2. Alcohol abuse. 3. Depression. 4. Wellbutrin overdose. 5. Hypomagnesemia. 6. 5150, which was discontinued. The patient was instructed to follow up with the PCP in about 1 to 2 weeks and instructed to stop al cohol. The patient will also be followed with his outpatient psychiatrist. Dictated By: LYNDSEY VALLEJO/JESÚS Conf#: [id number] DID#: [id number] CC: ALEXYS BARBOSA MD;*EndCC*
== END 2017-04-15 13:53 | disposition home or self-care (01) | DRG 439 ==
LOC: MS4 21:00 → PP2 04-10 22:06
PROVIDERS: ADMIT Internal Medicine Nephrology; ATTEND Internal Medicine Nephrology
DX: K85.90 Acute pancreatitis without necrosis or infection, unspecified (principal); F33.3 Major depressive disorder, recurrent, severe with psychotic symptoms; E83.42 Hypomagnesemia; T43.2 Poisoning by, adverse effect of and underdosing of other and unspecified antidepressants; F10.10 Alcohol abuse, uncomplicated; T43.291A Poisoning by other antidepressants, accidental (unintentional), initial encounter; I10 Essential (primary) hypertension; D64.9 Anemia, unspecified
CPT/HCPCS: 76705; 80048; 80053; 80061; 82150; 83690; 83735; 85025; 87081; 97116; 97163; C9113; J0696; J2060; J2270; J3411; J3475; J3480; J7030; J7042

== ENCOUNTER 2017-11-24 18:12 | Inpatient (IN) | END 2017-11-27 12:50 | disposition home or self-care (01) | DRG 896 ==

== ENCOUNTER 2018-08-12 01:31 | Inpatient (IN) | payer OTHER ==
[~2018-08-12] VITALS: Ht 185.4 cm; Wt 77.3 kg
[~2018-08-12 01:31] MED LIST: AMLO-147 PO; BUPR-75 PO; DOCU-216 PO; FER325 PO; FEXO60TA8 PO; FOLI-49 PO; HYDR-3601 PO; LISI10TA2 PO; LORA0.5T PO; MULT-843 PO; OMEP20CA16 PO; THIA100T56 PO
[2018-08-12 15:13] VITALS: BP 125/88; PULSE 69; RESP 18; Ht 185.4 cm; Wt 77.3 kg
--- NOTE | 2018-08-12 16:03 | QN ---
Documentation Comment seen and exmained LYNDSEY NASSAR MD Aug 12, 2018 16:03
[2018-08-12 16:16] VITALS: PULSE 67
[2018-08-12] MEDS ORDERED: ONDANSETRON 4 MG INJ IV PRN (16:30)
[2018-08-12] MEDS ORDERED: NACL 0.9% 3 ML SYG IV SCH (16:30)
[2018-08-12] MEDS ORDERED: METOCLOPRAMIDE 10 MG INJ IV PRN (16:30)
[2018-08-12] MEDS ORDERED: ACETAMINOPHEN 325 MG TAB PO PRN (16:30)
--- NOTE | 2018-08-12 17:27 | HP ---
DATE OF ADMISSION: 08/12/2018 REASON FOR ADMISSION: Alcohol withdrawal. HISTORY OF PRESENTING ILLNESS: This is a 57-year-old male with a past medical history of heavy alcoh ol abuse, hypertension, hyperlipidemia, severe depression, history of withdrawal seizures and DTs in the past, who presented to [facility] on 08/11 secondary to severe alcohol abuse. He was di scharged from [facility] in July. Since then, he has been on and off drinking. He las t drank 2 days ago. After that, he felt very shaky. He went to [facility]. He stayed ther e overnight and was discharged home with a prescription of Librium. However, he did not fill his pre scription because he did not have a ride to his pharmacy. He was feeling more shaky and he kept on v omiting for the last 2 days and was resent again to [facility]. When patient was there, hermelinda burr had a blood pressure of 148/88; heart rate was 111. The patient had a white count of 8.9, hemog lobin 11, platelet count of 185. The patient received Ativan 5 mg and, as bolus, a banana bag and wa s transferred to [facility] because of insurance reasons. Potassium was also found to be 3.2. PAST MEDICAL HISTORY: 1. History of hypertension. 2. Depression. 3. Psychiatric disorder. 4. History of basal cell carcinoma of the skin. ALLERGIES: 1. GRASS. 2. POLLEN. MEDICATIONS TAKEN AT HOME: None. PAST SURGICAL HISTORY: Multiple surgeries for basal cell carcinoma of the skin. The patient was jus t recently admitted in July 2018 and had Colles fracture of the right wrist, status post manipula tive closed reduction of the Colles fracture with a cast at that time. SOCIAL HISTORY: He does binge drinking, generally takes 1 pack of vodka per day. He denies any ciga rette smoking, any recreational drug use. FAMILY HISTORY: He lives with a partner at home. REVIEW OF SYSTEMS: The patient complained of some epigastric pain, nausea, vomiting for the last 2 d ays; feeling shaky, weak, tired; occasionally headache. He denies any chest pain, any shortness of b reath. He denies any diarrhea. According to the patient, patient also might have vomited blood. PHYSICAL EXAMINATION: VITAL SIGNS: Currently, blood pressure of 125/88, afebrile, respiratory rate of 18, saturating 98%. GENERAL: The patient is awake, alert, oriented. He does not appear to have any acute distress. HEENT: Pupils equal, round, reactive to light. NECK: Supple. No JVD. HEART: Regular rate and rhythm. LUNGS: Clear to auscultation bilaterally. ABDOMEN: Soft, nontender, nondistended. EXTREMITIES: No clubbing, cyanosis or edema. The patient has the right arm in the cast. DIAGNOSTIC DATA: From the other hospital, [facility], show potassium of 3.2, white count of 8.9, LFTs within normal limit, EtOH level is 5. EKG there had shown no significant ST elevation or depression, occasional premature atrial contractio ns. ASSESSMENT: This is a 57-year-old male who presented with: 1. Alcohol abuse with possible alcohol withdrawal. 2. History of hypertension. 3. Basal cell carcinoma of the skin. 4. Hypokalemia. 5. History of depression. 6. History of Colles fracture of the right wrist. PLAN: At this period of time, patient is admitted to [facility]. The patient will be on banana bag, clear liquids, Protonix, Ativan, Librium. We would also call GI evaluation with Dr. Ford. Rest of the treatment will depend on the patient's hospitalization course. Dictated By: LYNDSEY VALLEJO/JESÚS Conf#: [id number] DID#: [id number] CC: ALEXYS BARBOSA MD;*EndCC*
[2018-08-12] MEDS: SOD CHLORIDE 0.9% 1,000 ML IV SCH (18:00)
[2018-08-12] MEDS: LORAZEPAM 2 MG INJ IV PRN ×2 (18:40→22:29)
[2018-08-12] MEDS ORDERED: MAGNESIUM SULFATE 2 GM/50 ML 50 ML IVPB ONE (20:00)
[2018-08-12 20:16] VITALS: PULSE 63
[2018-08-12 20:31] VITALS: BP 166/97; PULSE 60; RESP 18
[2018-08-12] MEDS: CHLORDIAZEPOXIDE 25 MG CAP PO SCH (21:01)
[2018-08-12] MEDS: PANTOPRAZOLE 40 MG INJ IV SCH (21:58)
[2018-08-13] VITALS (11 sets, daily range): BP systolic 129–170; BP diastolic 87–108; PULSE 54–85; RESP 17–18
[2018-08-13] MEDS: LORAZEPAM 2 MG INJ IV PRN ×5 (03:02→20:28)
[2018-08-13] MEDS: morphine 2 MG INJ IV PRN ×5 (03:52→20:26)
[2018-08-13] MEDS ORDERED: PANTOPRAZOLE 40 MG INJ IV SCH (06:00)
[2018-08-13] MEDS: MULTIVITAMINS 10 ML, THIAMINE 100 MG, FOLIC ACID 1 MG in SOD CHLORIDE 0.9% 1,000 ML IVPB SCH (07:57)
[2018-08-13] MEDS: SOD CHLORIDE 0.9% 1,000 ML IV SCH ×2 (07:57→17:09)
[2018-08-13] MEDS: CHLORDIAZEPOXIDE 25 MG CAP PO SCH ×4 (07:58→23:11)
[2018-08-13] MEDS: PANTOPRAZOLE 40 MG INJ IV SCH ×2 (07:58→20:26)
[2018-08-13] MEDS ORDERED: MULTIVITAMINS 10 ML, THIAMINE 100 MG, FOLIC ACID 1 MG in SOD CHLORIDE 0.9% 1,000 ML IVPB SCH (09:00)
[2018-08-13] MEDS ORDERED: POTASSIUM CHLORIDE (SR) 20 MEQ TAB PO STA (09:00)
--- NOTE | 2018-08-13 13:48 | PN ---
Date/Time of Note Date/Time of Note DATE: 08/13/18 TIME: 13:45 Assessment/Plan VTE Prophylaxis Risk score (from [facility])>0 risk: 1 SCD applied (from [facility]): No SCD contraindicated: low risk/ambulating Pharmacological prophylaxis: NA/contraindicated Pharm contraindication: low risk/ambulating Lines/Catheters IV C[facility]ter Type ([facility]): Peripheral IV Assessment/Plan Hospital Course 1. Alcohol abuse with possible alcohol withdrawal. 2. History of hypertension. 3. Basal cell carcinoma of the skin. 4. Hypokalemia. 5. History of depression. 6. History of Colles fracture of the right wrist. 7. Neutropenia with normocytic hypochromic 9. Asymptomatic bradycardia Assessment/Plan - tele. restart homemeds -K replaced already -The patient will be on banana bag, -c/w clear liquids -GI prophylaxis famotidine PO bID, -for withdraw Ativan, Librium. -GI evaluation with Dr. Ford. Result Diagram: 08/13/1824 08/13/18 0524 Results 24hrs Laboratory Tests Test 08/12/18 16:23 08/13/18 05:24 Potassium Level 3.6 3.2 L Magnesium Level 1.4 L White Blood Count 3.9 #L Red Blood Count 3.44 #L Hemoglobin 9.7 #L Hematocrit 30.3 #L Mean Corpuscular Volume 88.1 Mean Corpuscular Hemoglobin 28.2 L Mean Corpuscular Hemoglobin Concent 32.0 Red Cell Distribution Width 14.6 H Platelet Count 113 #L Mean Platelet Volume 11.0 H Immature Granulocytes % 0.300 Neutrophils % 61.5 Lymphocytes % 29.7 Monocytes % 6.4 Eosinophils % 1.3 Basophils % 0.8 Nucleated Red Blood Cells % 0.0 Immature Granulocytes # 0.010 Neutrophils # 2.4 Lymphocytes # 1.2 Monocytes # 0.3 Eosinophils # 0.1 Basophils # 0.0 Nucleated Red Blood Cells # 0.0 Sodium Level 138 Chloride Level 106 Carbon Dioxide Level 23 Anion Gap 9 Blood Urea Nitrogen 4 L Creatinine 0.58 L Est Glomerular Filtrat Rate mL/min > 60 Glucose Level 92 Calcium Level 8.5 Total Bilirubin 0.7 Direct Bilirubin 0.00 Indirect Bilirubin 0.7 Aspartate Amino Transf (AST/SGOT) 33 Alanine Aminotransferase (ALT/SGPT) 43 Alkaline Phosphatase 68 Total Protein 6.1 Albumin 3.5 Globulin 2.60 Albumin/Globulin Ratio 1.34 Lipase 169 Subjective 24 Hr Interval Summary Musculoskeletal: bone/joint pain (right wrist) Psychological: depression, suicidal; No no complaints, No nl mood/affect, No anxiety, No confusion, No other Exam/Review of Systems Exam Vitals Vital Signs Date Temp Pulse Resp B/P (MAP) Pulse Ox O2 O2 Flow FiO2 Time Delivery Rate 08/13/18 54 12:14 08/13/18 97.6 17 133/92 98 11:41 (106) 08/12/18 Room Air 15:13 Intake and Output 08/12/18 08/12/18 08/13/18 1515:00 23:00 07:00 IntakeIntake Total 680 ml 400 ml OutputOutput Total 450 ml 225 ml BalanceBalance 230 ml 175 ml Constitutional: alert, oriented Neck: supple Respiratory: clear to auscultation Cardiovascular: regular rate and rhythm Gastrointestinal: soft Results Results 24hrs Laboratory Tests Test 08/12/18 16:23 08/13/18 05:24 Potassium Level 3.6 3.2 L Magnesium Level 1.4 L White Blood Count 3.9 #L Red Blood Count 3.44 #L Hemoglobin 9.7 #L Hematocrit 30.3 #L Mean Corpuscular Volume 88.1 Mean Corpuscular Hemoglobin 28.2 L Mean Corpuscular Hemoglobin Concent 32.0 Red Cell Distribution Width 14.6 H Platelet Count 113 #L Mean Platelet Volume 11.0 H Immature Granulocytes % 0.300 Neutrophils % 61.5 Lymphocytes % 29.7 Monocytes % 6.4 Eosinophils % 1.3 Basophils % 0.8 Nucleated Red Blood Cells % 0.0 Immature Granulocytes # 0.010 Neutrophils # 2.4 Lymphocytes # 1.2 Monocytes # 0.3 Eosinophils # 0.1 Basophils # 0.0 Nucleated Red Blood Cells # 0.0 Sodium Level 138 Chloride Level 106 Carbon Dioxide Level 23 Anion Gap 9 Blood Urea Nitrogen 4 L Creatinine 0.58 L Est Glomerular Filtrat Rate mL/min > 60 Glucose Level 92 Calcium Level 8.5 Total Bilirubin 0.7 Direct Bilirubin 0.00 Indirect Bilirubin 0.7 Aspartate Amino Transf (AST/SGOT) 33 Alanine Aminotransferase (ALT/SGPT) 43 Alkaline Phosphatase 68 Total Protein 6.1 Albumin 3.5 Globulin 2.60 Albumin/Globulin Ratio 1.34 Lipase 169 Medications Medication Current Medications Sodium Chloride 1,000 ml @ 60 mls/hr [id number] IV Last administered on 08/12/18 18:00; Admin Dose 60 MLS/HR; Start 08/12/18 at 16:03 IV Flush (NS 3 ml) 3 ml PER PROTOCOL IV ; Start 08/12/18 at 16:30 Ondansetron HCl (Zofran Inj) 4 mg Q6H PRN IV NAUSEA/VOMITING; Start 08/12/18 at 16:30 Metoclopramide HCl (Reglan) 10 mg Q6H PRN IV NAUSEA/VOMITING; Start 08/12/18 at 16:30 Acetaminophen (Tylenol Tab) 650 mg Q6H PRN PO .PAIN 1-3 OR TEMP; Start 08/12/18 at 16:30 Multivitamins 10 ml/Thiamine HCl 100 mg/Folic Acid 1 mg/Sodium Chloride 1,011.2 ml @ 125 mls/ hr DAILY@09 IVPB Last administered on 08/13/18 07:57; Admin Dose 125 MLS/HR; Start 08/13/18 at 09:00 Lorazepam (Ativan) 1 mg Q3H PRN IV AGITATION Last administered on 08/13/18 12:04; Admin Dose 1 MG; Start 08/12/18 at 16:30 Chlordiazepoxide (Librium) 50 mg TID PO Last administered on 08/13/18 07:58; Admin Dose 50 MG; Start 08/12/18 at 21:00 Pantoprazole (Protonix Iv) 40 mg BID IV Last administered on 08/13/18 07:58; Admin Dose 40 MG; Start 08/12/18 at 21:30 Morphine Sulfate (morphine) 2 mg Q4H PRN IV SEVERE PAIN LEVEL 7-10 Last a dministered on 08/13/18 12:05; Admin Dose 2 MG; Start 08/13/18 at 03:30 LYNDSEY MATTA Aug 13, 2018 13:48
[2018-08-13] MEDS: AMLODIPINE 10 MG TAB PO SCH (16:07)
[2018-08-13] MEDS: BUPROPION (XL) 150 MG TAB PO SCH (17:09)
[2018-08-13] MEDS: FERROUS SULFATE (EC) 325 MG TAB PO SCH (20:29)
[2018-08-13] MEDS: FAMOTIDINE 20 MG TAB PO SCH (20:33)
[2018-08-14] MEDS: LORAZEPAM 2 MG INJ IV PRN ×6 (01:43→23:59)
[2018-08-14] MEDS: morphine 2 MG INJ IV PRN ×5 (01:44→22:11)
[2018-08-14 02:44] VITALS: BP 139/93; PULSE 58; RESP 16
[2018-08-14 08:47] VITALS: BP 141/88; PULSE 56; RESP 18
[2018-08-14] MEDS: DOCUSATE SODIUM 100 MG CAP PO SCH (09:00)
[2018-08-14] MEDS: CHLORDIAZEPOXIDE 25 MG CAP PO SCH ×3 (09:14→20:21)
[2018-08-14] MEDS: FOLIC ACID 1 MG TAB PO SCH (09:14)
[2018-08-14] MEDS: THIAMINE 100 MG TAB PO SCH (09:14)
[2018-08-14] MEDS: PANTOPRAZOLE 40 MG INJ IV SCH ×2 (09:14→20:21)
[2018-08-14] MEDS: FAMOTIDINE 20 MG TAB PO SCH ×2 (09:14→20:21)
[2018-08-14] MEDS: AMLODIPINE 10 MG TAB PO SCH (09:14)
[2018-08-14] MEDS: FERROUS SULFATE (EC) 325 MG TAB PO SCH ×2 (09:14→20:21)
[2018-08-14] MEDS: BUPROPION (XL) 150 MG TAB PO SCH (09:15)
[2018-08-14] MEDS: MULTIVITAMINS 10 ML, THIAMINE 100 MG, FOLIC ACID 1 MG in SOD CHLORIDE 0.9% 1,000 ML IVPB SCH (09:25)
--- NOTE | 2018-08-14 09:42 | PN ---
Date/Time of Note Date/Time of Note DATE: 08/14/18 TIME: 09:41 Assessment/Plan VTE Prophylaxis Risk score (from [facility] [place])>0 risk: 3 SCD applied (from [facility] [place]): Yes Pharmacological prophylaxis: NA/contraindicated Pharm contraindication: thrombocytopenia Lines/Catheters IV Catheter Type (from [facility]): Peripheral IV Assessment/Plan Hospital Course 1. Alcohol abuse with possible alcohol withdrawal. 2. History of hypertension. 3. Basal cell carcinoma of the skin. 4. Hypokalemia. 5. History of depression. 6. History of Colles fracture of the right wrist. 7. Neutropenia with normocytic hypochromic anemia 9. Asymptomatic bradycardia 10. Diffuse steatosis per abdominal US with thrombocytopenia. 11. Mild bilateral hydronephrosis, asymptomatic. Assessment/Plan -bhat for procedure -CT urogram -restart home meds -Feso4 supplement -c/w banana bag, -full liquids diet -GI prophylaxis famotidine PO bID, -for withdraw Ativan, Librium. -GI evaluation with Dr. Ford is appreciated. Result Diagram: 08/14/1842608/14/18426 Results 24hrs Laboratory Tests Test 08/14/18 04:27 White Blood Count 4.6 L Red Blood Count 3.43 L Hemoglobin 9.7 L Hematocrit 30.8 L Mean Corpuscular Volume 89.8 Mean Corpuscular Hemoglobin 28.3 L Mean Corpuscular Hemoglobin Concent 31.5 L Red Cell Distribution Width 14.5 Platelet Count 99 L Mean Platelet Volume 10.8 H Immature Granulocytes % 0.400 Neutrophils % 56.9 Lymphocytes % 33.0 Monocytes % 7.0 Eosinophils % 2.0 Basophils % 0.7 Nucleated Red Blood Cells % 0.0 Immature Granulocytes # 0.020 Neutrophils # 2.6 Lymphocytes # 1.5 Monocytes # 0.3 Eosinophils # 0.1 Basophils # 0.0 Nucleated Red Blood Cells # 0.0 Sodium Level 139 Potassium Level 3.9 Chloride Level 108 Carbon Dioxide Level 25 Anion Gap 6 Blood Urea Nitrogen 4 L Creatinine 0.62 Est Glomerular Filtrat Rate mL/min > 60 Glucose Level 86 Calcium Level 8.6 Exam/Review of Systems Exam Vitals Vital Signs Date Temp Pulse Resp B/P (MAP) Pulse Ox O2 O2 Flow FiO2 Time Delivery Rate 08/14/18 97.7 56 18 141/88 99 Room Air 08:47 (105) Intake and Output 08/13/18 08/13/18 08/14/18 1515:00 23:00 07:00 IntakeIntake Total 1750 ml OutputOutput Total 2000 ml BalanceBalance -250 ml Constitutional: alert, oriented Eyes: nl conjunctiva Neck: supple Respiratory: clear to auscultation Cardiovascular: regular rate and rhythm Gastrointestinal: soft Musculoskeletal: other (right arm cast) Results Results 24hrs Laboratory Tests Test 08/14/18 04:27 White Blood Count 4.6 L Red Blood Count 3.43 L Hemoglobin 9.7 L Hematocrit 30.8 L Mean Corpuscular Volume 89.8 Mean Corpuscular Hemoglobin 28.3 L Mean Corpuscular Hemoglobin Concent 31.5 L Red Cell Distribution Width 14.5 Platelet Count 99 L Mean Platelet Volume 10.8 H Immature Granulocytes % 0.400 Neutrophils % 56.9 Lymphocytes % 33.0 Monocytes % 7.0 Eosinophils % 2.0 Basophils % 0.7 Nucleated Red Blood Cells % 0.0 Immature Granulocytes # 0.020 Neutrophils # 2.6 Lymphocytes # 1.5 Monocytes # 0.3 Eosinophils # 0.1 Basophils # 0.0 Nucleated Red Blood Cells # 0.0 Sodium Level 139 Potassium Level 3.9 Chloride Level 108 Carbon Dioxide Level 25 Anion Gap 6 Blood Urea Nitrogen 4 L Creatinine 0.62 Est Glomerular Filtrat Rate mL/min > 60 Glucose Level 86 Calcium Level 8.6 Medications Medication Current Medications Sodium Chloride 1,000 ml @ 60 mls/hr [id number] IV Last administered on 08/13/18at 17:09; Admin Dose 60 MLS/HR; Start 08/12/18 at 16:03 IV Flush (NS 3 ml) 3 ml PER PROTOCOL IV ; Start 08/12/18 at 16:30 Ondansetron HCl (Zofran Inj) 4 mg Q6H PRN IV NAUSEA/VOMITING; Start 08/12/18 at 16:30 Metoclopramide HCl (Reglan) 10 mg Q6H PRN IV NAUSEA/VOMITING; Start 08/12/18 at 16:30 Acetaminophen (Tylenol Tab) 650 mg Q6H PRN PO .PAIN 1-3 OR TEMP; Start 08/12/18 at 16:30 Multivitamins 10 ml/Thiamine HCl 100 mg/Folic Acid 1 mg/Sodium Chloride 1,011.2 ml @ 125 mls/ hr DAILY@09 IVPB Last administered on 08/14/18 09:25; Admin Dose 125 MLS/HR; Start 08/13/18 at 09:00 Lorazepam (Ativan) 1 mg Q3H PRN IV AGITATION Last administered on 08/14/18 0 6:35; Admin Dose 1 MG; Start 08/12/18 at 16:30 Chlordiazepoxide (Librium) 50 mg TID PO Last administered on 08/14/18 09:14; Admin Dose 50 MG; Start 08/12/18 at 21:00 Pantoprazole (Protonix Iv) 40 mg BID IV Last administered on 08/14/18 09:14; Admin Dose 40 MG; Start 08/12/18 at 21:30 Morphine Sulfate (morphine) 2 mg Q4H PRN IV SEVERE PAIN LEVEL 7-10 Last administered on 08/14/18 05:46; Admin Dose 2 MG; Start 08/13/18 at 03:30 Famotidine (Pepcid) 20 mg BID PO Last administered on 08/14/18 09:14; Admin Dose 20 MG; Start 08/13/18 at 21:00 Hydralazine HCl (Apresoline) 25 mg TID PO Last administered on 08/14/18 09:14; Admin Dose 25 MG; Start 08/13/18 at 21:00 Amlodipine Besylate (Norvasc) 10 mg DAILY PO Last administered on 08/14/18 09:14; Admin Dose 10 MG; Start 08/13/18 at 14:00 Bupropion HCl (Wellbutrin Xl) 300 mg DAILY PO Last administered on 08/14/18 09:15; Admin Dose 300 MG; Start 08/13/18 at 15:00 Docusate Sodium (Colace) 100 mg DAILY PO ; Start 08/14/18 at 09:00 Ferrous Sulfate (Ferrous Sulfate (Ec)) 325 mg BID PO Last administered on 08/14/18 09:14; Admin Dose 325 MG; Start 08/13/18 at 21:00 Folic Acid (Folic Acid) 1 mg DAILY PO Last administered on 08/14/18 09:14; Admin Dose 1 MG; Start 08/14/18 at 09:00 Thiamine HCl (Vitamin B1) 100 mg DAILY PO Last administered on 3/16/19at 09:14; Admin Dose 100 MG; Start 08/14/18 at 09:00 LYNDSEY MATTA 16, 2019 09:42
[2018-08-14] MEDS ORDERED: IOHEXOL 14.3 MG(I)/ML (ADULT) BTL PO ONE (10:30)
[2018-08-14] MEDS ORDERED: SOD CHLORIDE 0.9% 100 ML ONE (12:01)
[2018-08-14] MEDS ORDERED: IOHEXOL 300MG/ML 150 ML BTL ONE (12:01)
[2018-08-14 14:00] VITALS: BP 121/88; PULSE 67; RESP 16
[2018-08-14] MEDS: SOD CHLORIDE 0.9% 1,000 ML IV SCH (19:55)
[2018-08-14 20:00] VITALS: BP 129/84; PULSE 80; RESP 17
[2018-08-15 02:00] VITALS: BP 121/87; PULSE 60; RESP 16
[2018-08-15] MEDS: morphine 2 MG INJ IV PRN ×5 (02:23→21:52)
[2018-08-15] MEDS: LORAZEPAM 2 MG INJ IV PRN ×5 (03:49→20:34)
[2018-08-15 08:33] VITALS: BP 100/68; PULSE 61; RESP 17
[2018-08-15] MEDS: BUPROPION (XL) 150 MG TAB PO SCH (08:59)
[2018-08-15] MEDS: FAMOTIDINE 20 MG TAB PO SCH ×2 (09:00→20:34)
[2018-08-15] MEDS: CHLORDIAZEPOXIDE 25 MG CAP PO SCH ×3 (09:00→20:34)
[2018-08-15] MEDS: AMLODIPINE 10 MG TAB PO SCH (09:00)
[2018-08-15] MEDS: FOLIC ACID 1 MG TAB PO SCH (09:00)
[2018-08-15] MEDS: DOCUSATE SODIUM 100 MG CAP PO SCH (09:00)
[2018-08-15] MEDS: FERROUS SULFATE (EC) 325 MG TAB PO SCH ×2 (09:00→20:34)
[2018-08-15] MEDS: PANTOPRAZOLE 40 MG INJ IV SCH ×2 (09:01→20:33)
[2018-08-15] MEDS: MULTIVITAMINS 10 ML, FOLIC ACID 1 MG in SOD CHLORIDE 0.9% 1,000 ML IVPB SCH (09:01)
[2018-08-15] MEDS: SOD CHLORIDE 0.9% 1,000 ML IV SCH (10:43)
[2018-08-15 15:19] VITALS: BP 102/70; PULSE 74; RESP 18
[2018-08-15] MEDS: THIAMINE 100 MG TAB PO SCH (15:26)
--- NOTE | 2018-08-15 18:07 | PN ---
Date/Time of Note Date/Time of Note DATE: 08/15/18 TIME: 18:04 Assessment/Plan VTE Prophylaxis Risk score (from [facility])>0 risk: 4 [place] [facility] [place] SCD contraindicated: other Pharmacological prophylaxis: other Pharm contraindication: other Lines/Catheters IV Catheter Type (from [facility]): Peripheral IV Urinary Cath still in place: No Assessment/Plan Hospital Course 1. Alcohol abuse with alcohol withdrawal. 2. History of hypertension. 3. Basal cell carcinoma of the skin.hx 4. Hypokalemia.better 5. History of depression. 6. History of Colles fracture of the right wrist. 7. Neutropenia with normocytic hypochromic anemia 9. Asymptomatic bradycardia 10. Diffuse steatosis per abdominal US with thrombocytopenia. plan per gu Result Diagram: 08/15/1842508/15/18425 Results 24hrs Laboratory Tests Test 08/15/18 04:26 White Blood Count 4.3 L Red Blood Count 3.56 L Hemoglobin 9.8 L Hematocrit 32.4 L Mean Corpuscular Volume 91.0 Mean Corpuscular Hemoglobin 27.5 L Mean Corpuscular Hemoglobin Concent 30.2 L Red Cell Distribution Width 14.9 H Platelet Count 106 L Mean Platelet Volume 12.0 H Immature Granulocytes % 0.500 H Neutrophils % 49.5 Lymphocytes % 38.1 Monocytes % 9.1 Eosinophils % 2.1 Basophils % 0.7 Nucleated Red Blood Cells % 0.0 Immature Granulocytes # 0.020 Neutrophils # 2.1 Lymphocytes # 1.6 Monocytes # 0.4 Eosinophils # 0.1 Basophils # 0.0 Nucleated Red Blood Cells # 0.0 Sodium Level 142 Potassium Level 4.1 Chloride Level 108 Carbon Dioxide Level 27 Anion Gap 7 Blood Urea Nitrogen 8 Creatinine 0.77 Est Glomerular Filtrat Rate mL/min > 60 Glucose Level 65 #L Calcium Level 8.6 Subjective 24 Hr Interval Summary Constitutional: no complaints, other (ct urogram neg) Cardiovascular: no complaints Gastrointestinal: no complaints Genitourinary: no complaints Exam/Review of Systems Exam Vitals Vital Signs Date Temp Pulse Resp B/P (MAP) Pulse Ox O2 O2 Flow FiO2 Time Delivery Rate 08/15/18 98.0 74 18 102/70 99 Room Air 15:19 (81) Intake and Output 08/14/18 08/14/18 08/15/18 1515:00 23:00 07:00 IntakeIntake Total 1225 ml 1460 ml 1020 ml BalanceBalance 1225 ml 1460 ml 1020 ml Neck: supple Cardiovascular: regular rate and rhythm Gastrointestinal: soft Extremities: normal pulses Skin: nl turgor Results Results 24hrs Laboratory Tests Test 08/15/18 04:26 White Blood Count 4.3 L Red Blood Count 3.56 L Hemoglobin 9.8 L Hematocrit 32.4 L Mean Corpuscular Volume 91.0 Mean Corpuscular Hemoglobin 27.5 L Mean Corpuscular Hemoglobin Concent 30.2 L Red Cell Distribution Width 14.9 H Platelet Count 106 L Mean Platelet Volume 12.0 H Immature Granulocytes % 0.500 H Neutrophils % 49.5 Lymphocytes % 38.1 Monocytes % 9.1 Eosinophils % 2.1 Basophils % 0.7 Nucleated Red Blood Cells % 0.0 Immature Granulocytes # 0.020 Neutrophils # 2.1 Lymphocytes # 1.6 Monocytes # 0.4 Eosinophils # 0.1 Basophils # 0.0 Nucleated Red Blood Cells # 0.0 Sodium Level 142 Potassium Level 4.1 Chloride Level 108 Carbon Dioxide Level 27 Anion Gap 7 Blood Urea Nitrogen 8 Creatinine 0.77 Est Glomerular Filtrat Rate mL/min > 60 Glucose Level 65 #L Calcium Level 8.6 Medications Medication Current Medications Sodium Chloride 1,000 ml @ 60 mls/hr [id number] IV Last administered on 08/14/18at 19:55; Admin Dose 60 MLS/HR; Start 08/12/18 at 16:03 IV Flush (NS 3 ml) 3 ml PER PROTOCOL IV ; Start 08/12/18 at 16:30 Ondansetron HCl (Zofran Inj) 4 mg Q6H PRN IV NAUSEA/VOMITING; Start 08/12/18 at 16:30 Metoclopramide HCl (Reglan) 10 mg Q6H PRN IV NAUSEA/VOMITING; Start 08/12/18 at 16:30 Acetaminophen (Tylenol Tab) 650 mg Q6H PRN PO .PAIN 1-3 OR TEMP; Start 08/12/18 at 16:30 Lorazepam (Ativan) 1 mg Q3H PRN IV AGITATION Last administered on 08/15/18at 16:53; Admin Dose 1 MG; Start 08/12/18 at 16:30 Chlordiazepoxide (Librium) 50 mg TID PO Last administered on 08/15/18 12:24; Admin Dose 50 MG; Start 08/12/18 at 21:00 Pantoprazole (Protonix Iv) 40 mg BID IV Last administered on 08/15/18 09:01; Admin Dose 40 MG; Start 08/12/18 at 21:30 Morphine Sulfate (morphine) 2 mg Q4H PRN IV SEVERE PAIN LEVEL 7-10 Last administered on 08/15/18 15:26; Admin Dose 2 MG; Start 08/13/18 at 03:30 Famotidine (Pepcid) 20 mg BID PO Last administered on 08/15/18 09:00; Admin Dose 20 MG; Start 08/13/18 at 21:00 Hydralazine HCl (Apresoline) 25 mg TID PO Last administered on 08/15/18 12:25; Admin Dose 25 MG; Start 08/13/18 at 21:00 Amlodipine Besylate (Norvasc) 10 mg DAILY PO Last administered on 08/14/18 09:14; Admin Dose 10 MG; Start 08/13/18 at 14:00 Bupropion HCl (Wellbutrin Xl) 300 mg DAILY PO Last administered on 08/15/18 08:59; Admin Dose 300 MG; Start 08/13/18 at 15:00 Docusate Sodium (Colace) 100 mg DAILY PO Last administered on 08/15/18 09:00; Admin Dose 100 MG; Start 08/14/18 at 09:00 Ferrous Sulfate (Ferrous Sulfate (Ec)) 325 mg BID PO Last administered on 08/15/18 09:00; Admin Dose 325 MG; Start 08/13/18 at 21:00 Folic Acid (Folic Acid) 1 mg DAILY PO Last administered on 08/15/18 09:00; Admin Dose 1 MG; Start 08/14/18 at 09:00 Thiamine HCl (Vitamin B1) 100 mg DAILY PO Last administered on 08/15/18 15:26; Admin Dose 100 MG; Start 08/14/18 at 09:00 Multivitamins 10 ml/Folic Acid 1 mg/Sodium Chloride 1,010.2 ml @ 125 mls/ hr DAILY@09 IVPB Last administered on 08/15/18 09:01; Admin Dose 125 MLS/HR; Start 08/15/18 at 09:00 Miscellaneous Information (* Miscellaneous Pharmacy Order) Thiamine vial is currently not available f... Q12H XX ; Start 08/14/18 at 18:00 ALEXYS BARBOSA MD Aug 15, 2018 18:07
[2018-08-15 20:00] VITALS: BP 111/76; PULSE 55; RESP 19
[2018-08-16] MEDS: SOD CHLORIDE 0.9% 1,000 ML IV SCH (00:10)
[2018-08-16] MEDS: LORAZEPAM 2 MG INJ IV PRN ×5 (00:10→16:25)
[2018-08-16 02:12] VITALS: BP 143/91; PULSE 75; RESP 18
[2018-08-16] MEDS: morphine 2 MG INJ IV PRN ×5 (02:14→18:56)
[2018-08-16] MEDS: BUPROPION (XL) 150 MG TAB PO SCH (08:07)
[2018-08-16] MEDS: CHLORDIAZEPOXIDE 25 MG CAP PO SCH ×2 (08:07→12:49)
[2018-08-16] MEDS: FERROUS SULFATE (EC) 325 MG TAB PO SCH (08:07)
[2018-08-16] MEDS: FOLIC ACID 1 MG TAB PO SCH (08:07)
[2018-08-16] MEDS: THIAMINE 100 MG TAB PO SCH (08:07)
[2018-08-16] MEDS: AMLODIPINE 10 MG TAB PO SCH (08:07)
[2018-08-16] MEDS: FAMOTIDINE 20 MG TAB PO SCH (08:07)
[2018-08-16] MEDS: PANTOPRAZOLE 40 MG INJ IV SCH (08:07)
[2018-08-16] MEDS: DOCUSATE SODIUM 100 MG CAP PO SCH (08:08)
[2018-08-16] MEDS: MULTIVITAMINS 10 ML, FOLIC ACID 1 MG in SOD CHLORIDE 0.9% 1,000 ML IVPB SCH (08:29)
--- NOTE | 2018-08-16 13:11 | QN ---
Documentation Comment Pt ding well VS stable dc home LYNDSEY NASSAR MD Aug 16, 2018 13:11
--- NOTE | 2018-08-16 13:13 | PDOCDIS ---
Discharge Instructions DIAGNOSIS Discharge Diagnosis alcholol Use Peptic ulcer disease CONDITION [id number] Patient Condition: [id number] Good HOME CARE INSTRUCTIONS: [id number] Diet Instructions: [id number] Low Fat /Cholesterol ACTIVITY: [id number] Activity Restrictions: [id number] Slowly Increase Activity Rest between Activity Avoid heavy lifting FOLLOW UP/APPOINTMENTS Follow-up Plan fu With PCP 1-[address] Cheung in about 1-2 weeks Alcohol cessation Return to ER if has chest pain shortness of breath agitation LYNDSEY NASSAR MD Aug 16, 2018 13:13
[2018-08-16] MEDS ORDERED: OMEP20CA16 PO (13:15)
[2018-08-16] MEDS ORDERED: CHLO25CA9 PO (13:15)
[2018-08-16 14:00] VITALS: BP 124/84; PULSE 81; RESP 17
--- NOTE | 2018-08-16 15:15 | DS ---
DATE OF ADMISSION: 08/12/2018 DATE OF DISCHARGE: 08/16/2018 HOSPITAL COURSE: A 57-year-old with a past medical history of heavy alcohol abuse, hypertension, hyp erlipidemia, severe depression, history of withdrawal, seizures or DTs in the past, presented to [facility] secondary to severe alcohol abuse. [facility]. Since then, he was on and off drinking. He drank 2 days ago. After that he felt very shaky, went to [facility], stayed there overnight and discharged home with prescription of Librium ; however, did not fill his prescription, did not have a ride to the pharmacy and feeling more shaky and kept on vomiting the last 2 days and was resent again to [facility] and was admitted. S dominick admission, LFTs were within normal limits. Potassium of 3.2. White count 8.9. ETOH levels wer e 5, EKGs, no significant ST elevation or depression. Occasional premature atrial contractions. The patient was initially admitted to telemetry. Patient was started on IV Ativan and Librium, started on clear fluids, banana bag. The patient's condition was slowly improving every day. The patient dunham s a history of peptic ulcer disease. The patient was slowly advanced diet, which he was tolerating. There were no seizures. The patient's condition was slowly improving every day. Vital signs were s table and blood pressures are stable and he is currently stable to be discharged home. FINAL DISCHARGE DIAGNOSES: 1. Alcohol abuse and alcohol withdrawal. 2. History of hypertension. 3. History of basal cell carcinoma of the skin. 4. Hyperkalemia, better. 5. Depression history. 6. History of Colles fracture of the right wrist. The patient is supposed to follow up with Dr. Cheung as an outpatient. 7. Neutropenia with neutropenic hypochromic anemia. 8. Diffuse steatosis per abdominal ultrasound with thrombocytopenia. Patient was also advised alcoh ol cessation. Continue with home medications which are: 1. Norvasc 10. 2. Colace. 3. Iron sulfate. 4. . 5. Folic acid. 6. Lisinopril 7. Lorazepam. 8. Prilosec. 9. Thiamine. 10. Librium was given tapering dose for over 3 days to 50 mg t.i.d., 25 mg p.o. b.i.d. for 2 days an d then 5 mg daily for 1 day. Dictated By: LYNDSEY VALLEJO/JESÚS Conf#: [id number] DID#: [id number]
[2018-08-16] MEDS ORDERED: PANTOPRAZOLE (EC) 40 MG TAB PO SCH (18:00)
== END 2018-08-16 19:10 | disposition home or self-care (01) | DRG 897 ==
LOC: 6WM 14:42 → PP2 08-13 17:58
PROVIDERS: ADMIT Internal Medicine Nephrology; ATTEND Internal Medicine Nephrology
DX: F10.239 Alcohol dependence with withdrawal, unspecified (principal); N13.30 Unspecified hydronephrosis; I10 Essential (primary) hypertension; E87.6 Hypokalemia; F32.9 Major depressive disorder, single episode, unspecified; E78.5 Hyperlipidemia, unspecified; D69.6 Thrombocytopenia, unspecified; D70.9 Neutropenia, unspecified; D64.9 Anemia, unspecified; R00.1 Bradycardia, unspecified; Z85.828 Personal history of other malignant neoplasm of skin
CPT/HCPCS: 74178; 76700; 80048; 80053; 83690; 83735; 84132; 85025; C9113; J2060; J2270; J3411; J3475; J7030; Q9967